=== PATIENT | female | born 1955 | race Caucasian/White ===

== ENCOUNTER 2022-01-23 13:36 | Inpatient (IN) | payer MEDICARE, OTHER ==
[~2022-01-23] VITALS: Ht 152.4 cm; Wt 52.6 kg
[2022-01-23] MEDS ORDERED: ASPIRIN 81MG TABLET PO ONE (14:30)
[2022-01-23] MEDS ORDERED: NITROGLYCERIN 0.4MG TABLET SL SL PRN ×2 (14:30→19:30)
[2022-01-23 14:54] LABS: HEMATOCRIT. 39.2 % (36.0-48.0); MEAN PLATELET VOLUME 8.1 fl (7.4-10.4); PLATELET 226 x1000/uL (130-400); RED BLOOD CELL COUNT 4.51 mill/uL (4.2-5.4); RED CELL DISTRIBUTION WIDTH 12.9 % (11.6-14.6)
[2022-01-23 15:01] LABS: CHLORIDE 103 mEq/L (98-107)
[2022-01-23] MEDS ORDERED: POTASSIUM CHLORIDE 20MEQ TABLET SR PO ONE (15:45)
[2022-01-23 15:54] LABS: PLATELET ESTIMATE NORMAL
[2022-01-23] MEDS ORDERED: ALBUTEROL (0.083%) 2.5MG/3ML NEB HHN STA (16:10)
[2022-01-23] MEDS ORDERED: NA PHOS,M-B/NA PHOS,DI-BA ENEMA 118ML PR PRN (19:30)
[2022-01-23] MEDS ORDERED: ONDANSETRON HCL 4MG/2ML INJ IV PRN (19:30)
[2022-01-23] MEDS ORDERED: ZOLPIDEM TARTRATE 5MG TABLET PO PRN (19:30)
[2022-01-23] MEDS ORDERED: ACETAMINOPHEN 325MG TABLET PO PRN ×2 (19:30)
[2022-01-23] MEDS ORDERED: DOCUSATE SODIUM 100MG CAPSULE PO PRN (19:30)
[2022-01-23] MEDS ORDERED: POTASSIUM CHLORIDE 20MEQ TABLET SR PO NR (19:30)
[2022-01-23] MEDS ORDERED: KETOROLAC 15MG/ML VIAL IV PRN (19:30)
[2022-01-23] MEDS ORDERED: MAGNESIUM/ALUMINUM HYDROXIDE/SIMETHICONE 30ML UDC PO PRN (19:30)
[2022-01-23] MEDS ORDERED: CLONIDINE 0.1MG TABLET PO PRN (19:30)
[2022-01-23 20:06] LABS: ETHANOL BLOOD < 10 mg/dL
[2022-01-23 20:08] LABS: LDL CHOLESTEROL 108 mg/dL (5-100)
[2022-01-23 20:10] LABS: HDL CHOLESTEROL 86 mg/dL (40-59)
[2022-01-23 20:14] LABS: TOTAL IRON BINDING CAPACITY 339 ug/dL (250-450)
[2022-01-23 20:21] LABS: FOLIC ACID (FOLATE) SERUM 10.3 ng/mL (>5.38)
[2022-01-23] MEDS ORDERED: FAMOTIDINE 20MG TABLET PO SCH (21:00)
[2022-01-23 22:34] VITALS: BP 144/71
[2022-01-23] MEDS ORDERED: LISI10TA26 MT (23:09)
[2022-01-24] MEDS: GUAIFENESIN 200MG/10ML SUGAR FREE UDC PO PRN ×4 (01:00→22:26)
[2022-01-24] MEDS: FAMOTIDINE 20MG TABLET PO SCH ×2 (01:00→21:07)
[2022-01-24] MEDS: ASCORBIC ACID 500 MG TABLET PO SCH ×3 (01:00→21:06)
[2022-01-24] MEDS: ENOXAPARIN 40MG/0.4ML SYR SUBCUT SCH ×2 (01:01→21:07)
[2022-01-24] MEDS: IPRATROPIUM/ALBUTEROL 0.5-3(2.5)MG/3ML NEB NEB PRN ×2 (02:23→20:26)
[2022-01-24 03:25] LABS: BASOPHILS % 0.9 % (0.0-2.0); EOSINOPHILS % 1.2 % (0.0-5.0); HEMATOCRIT. 39.3 % (36.0-48.0); HEMOGLOBIN. 13.4 g/dL (12.0-16.0); LYMPHOCYTES % 20.8 % (20.0-50.0); MEAN CORPUSCULAR HEMOGLOBIN 30.1 pg (28.0-32.0); MEAN CORPUSCULAR VOLUME 88.1 fL (81.0-99.0); MEAN PLATELET VOLUME 8.2 fl (7.4-10.4); MONOCYTES % 7.7 % (2.0-8.0); NEUTROPHILS % 69.4 % (40.0-76.0); PLATELET 217 x1000/uL (130-400); RED BLOOD CELL COUNT 4.46 mill/uL (4.2-5.4); RED CELL DISTRIBUTION WIDTH 13.3 % (11.6-14.6)
[2022-01-24 03:33] LABS: CHLORIDE 105 mEq/L (98-107)
[2022-01-24 03:39] LABS: PHOSPHORUS 2.3 mg/dL (2.5-4.9)
[2022-01-24 03:42] LABS: CREATINE KINASE 201 IU/L (26-192)
[2022-01-24 03:44] LABS: CREATINE KINASE MB FRACTION 3.4 ng/mL (0.5-3.6)
[2022-01-24] MEDS ORDERED: *PATIENT'S OWN MEDICATION STORAGE XX SCH (06:15)
[2022-01-24] MEDS ORDERED: KCL 20MEQ/100ML PREMIX 100 ML IV NR (07:00)
[2022-01-24 08:13] VITALS: BP 159/74
[2022-01-24] MEDS: ZINC SULFATE 220 MG ( 50 ) CAPSULE PO SCH (08:18)
[2022-01-24] MEDS: ASPIRIN 325MG EC TABLET PO SCH (08:18)
[2022-01-24] MEDS: CLINDAMYCIN 600 MG PREMIX 50 ML IV SCH ×2 (11:20→21:06)
[2022-01-24 12:27] VITALS: BP 141/72
[2022-01-24 13:01] LABS: CLARITY URINE CLEAR (CLEAR); COLOR URINE YELLOW (YELLOW); KETONES URINE NEGATIVE (NEGATIVE); LEUKOCYTE ESTERASE URINE 3+ (NEGATIVE); NITRITE URINE NEGATIVE (NEGATIVE); OCCULT BLOOD URINE TRACE (NEGATIVE); PH URINE 6.5 (4.5-8.0); PROTEIN URINE 1+ (NEGATIVE); SPECIFIC GRAVITY URINE 1.019 (1.005-1.030); UROBILINOGEN URINE 0.2 E.U./dL (0.2-1.0)
[2022-01-24 13:13] LABS: *AMPHETAMINES SCREEN URINE NEGATIVE (NEGATIVE); *BARBITURATES SCREEN URINE NEGATIVE (NEGATIVE); *COCAINE SCREEN URINE NEGATIVE (NEGATIVE)
[2022-01-24 13:14] LABS: *BENZODIAZEPINES SCREEN URINE NEGATIVE (NEGATIVE); CANNABINOID URINE SCREEN NEGATIVE (NEGATIVE); METHADONE URINE SCREEN NEGATIVE (NEGATIVE); OPIATES URINE SCREEN NEGATIVE (NEGATIVE); PHENCYCLIDINE URINE SCREEN NEGATIVE (NEGATIVE)
[2022-01-24 15:31] VITALS: BP 137/65
[2022-01-24] MEDS ORDERED: POTASSIUM CHLORIDE 20MEQ/PACKET PO NR (16:43)
[2022-01-24 20:00] VITALS: BP 145/77
[2022-01-25] VITALS: BP 148/84
[2022-01-25] MEDS: GUAIFENESIN 200MG/10ML SUGAR FREE UDC PO PRN ×3 (02:51→17:17)
[2022-01-25 04:00] VITALS: BP 134/75
[2022-01-25] MEDS: CLINDAMYCIN 600 MG PREMIX 50 ML IV SCH ×3 (04:49→20:09)
[2022-01-25 07:55] VITALS: BP 128/72
[2022-01-25] MEDS: ZINC SULFATE 220 MG ( 50 ) CAPSULE PO SCH (08:28)
[2022-01-25] MEDS: ASPIRIN 325MG EC TABLET PO SCH (08:28)
[2022-01-25] MEDS: ASCORBIC ACID 500 MG TABLET PO SCH ×2 (08:28→20:19)
[2022-01-25 13:01] VITALS: BP 125/72
[2022-01-25 15:38] VITALS: BP 133/86
[2022-01-25 20:00] VITALS: BP 121/75
[2022-01-25] MEDS: ENOXAPARIN 40MG/0.4ML SYR SUBCUT SCH (22:19)
[2022-01-25] MEDS: FAMOTIDINE 20MG TABLET PO SCH (22:19)
[2022-01-26] VITALS: BP 142/95
[2022-01-26] MEDS ORDERED: ZOLPIDEM TARTRATE 5MG TABLET PO PRN (01:00)
[2022-01-26 04:00] VITALS: BP 144/86
[2022-01-26] MEDS: CLINDAMYCIN 600 MG PREMIX 50 ML IV SCH (04:09)
[2022-01-26 08:00] VITALS: BP 133/81
[2022-01-26] MEDS: ZINC SULFATE 220 MG ( 50 ) CAPSULE PO SCH (08:07)
[2022-01-26] MEDS: ASCORBIC ACID 500 MG TABLET PO SCH (08:07)
[2022-01-26] MEDS: ASPIRIN 325MG EC TABLET PO SCH (08:07)
[2022-01-26] MEDS ORDERED: AMOX-424 MT (09:45)
[2022-01-26 10:56] VITALS: BP 133/81
== END 2022-01-26 12:00 | disposition home or self-care (01) | DRG 205 ==
LOC: ER 13:36 → 8WST 18:15 → EDBEDREQ 18:18 → EDBEDREQTM 18:18 → ENRESERV 21:13 → CANBEDREQ 01-24 00:10
PROVIDERS: ADMIT Internal Medicine; ATTEND Internal Medicine
DX: M94.0 Chondrocostal junction syndrome [Tietze] (principal); I50.33 Acute on chronic diastolic (congestive) heart failure; E87.1 Hypo-osmolality and hyponatremia; E87.6 Hypokalemia; I11.0 Hypertensive heart disease with heart failure; D72.829 Elevated white blood cell count, unspecified; J02.9 Acute pharyngitis, unspecified
CPT/HCPCS: 36415; 71045; 80053; 80061; 80305; 80320; 81003; 82550; 82553; 82607; 82746; 83036; 83540; 83550; 83735; 83880; 84100; 84145; 84439; 84443; 84484; 85025; 85379; 93005; 93306; 93970; 94640; 99285; J1650; J3480; J3490; J7060; G0480